=== PATIENT | male | born 1960 | race Caucasian/White ===

== ENCOUNTER 2018-01-10 09:45 | Outpatient (RCR) | payer OTHER, SELFPAY ==
--- NOTE | 2017-11-23 15:21 | PT.OIE ---
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 T[employer] Rules Primary Care Provider Specialty: Family Practice Address: [address] [place] [address], [employer] Email: Physical Therapy Initial Evaluation PT-OP-A Visit Information Start: 11/22/17 14:27 Freq: Status: Active Protocol: Document 11/22/17 14:29 EA (Rec: 11/22/17 14:31 EA [id number]) Out-Patient Physical Therapy Visit Information Visit Information Visit Type Initial Evaluation Visit Start Time 10:30 Visit Stop Time 11:45 Total Visit Minutes 35 Visit Number 1 Evaluation Information Evaluation Date 11/22/17 PT-OP-B Current Condition Start: 11/22/17 14:27 Freq: Status: Active Protocol: Document 11/22/17 14:29 EA (Rec: 11/23/17 14:30 EA [id number]) Current Condition History of Current Condition Onset Date 6-8 months ago Current Complaints Localized low back pain rated 5/10 History of Current Condition Pt reports present condition started 6-8 months ago that develops gradually with no known or recent injury; states it could be related to his fall in the horse when he was 10 year old. Patient denies any radiation of pain and pain increased mostly when leaning back sung in a sitting position and decreased upon leaning forward. Patient states that he and his loves to perform daily morning exercises that included whole body workout using BW and flexibility exercises; pt mentioned they also perform abdominal exercises that included leg up and raises. 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) Prior Functional Status Baseline Function- ADL's Independent Baseline Function- Work/School Able to seat and work more than 8 hours without back pain Current Functional Impairments (Reported) Functional Limitations- Work/School Unable to seat > 1 hour at work without leaning forward or change position Personal Factors Other Personal Factors That May Effect Other problem: chronic neck Therapy/Recovery pain PT-OP-C Subjective Start: 11/22/17 14:27 Freq: Status: Active Protocol: Document 11/22/17 14:29 EA (Rec: 11/23/17 14:30 EA [id number]) OP-PT Subjective Patient Comments Patient Comments C/o localized intermittent low back pain rated 5/10 that disappear upon leaning FWD in seating. Patient Reported Progress Same Patient Questionnaires Oswestry Low Back Index Oswestry Impairment 1 to 19% Impaired (Score 1-19) PT-OP-J Posture/Palpation/Skin Start: 11/22/17 14:27 Freq: Status: Active Protocol: Document 11/22/17 14:29 EA (Rec: 11/23/17 14:30 EA [id number]) Posture Evaluation Position Standing L-Spine Posture Increased Lordosis Pelvis Posture Anteriorly Tilted PT-OP-K Range of Motion Start: 11/22/17 14:27 Freq: Status: Active Protocol: Document 11/22/17 14:29 EA (Rec: 11/23/17 14:30 EA [id number]) Lumbar Spine Range of Motion Lumbar Spine Active Percentage Testing Position Standing Flexion 90 Extension 90 Rotation Left 90 Rotation Right 90 Lateral Flexion Left 85 Lateral Flexion Right 85 ROM Limitations Soft Tissue Tightness Pain Hip Goniometric Range of Motion Hip Measured in Degrees Right Active Hip ROM WFL Yes Left Active Hip ROM WFL Yes PT-OP-L Special Tests Start: 11/22/17 14:27 Freq: Status: Active Protocol: Document 11/22/17 14:29 EA (Rec: 11/23/17 14:30 EA [id number]) Special Tests Lumbar Spine Special Tests Stork Test Test Results negative Valsalva Maneuver Test Results negative Straight Leg Raise Test Results Negative both Comments Tight hamstring Other Special Tests Special Tests Sacral compression: Sensitive to L SI jnt Prone single Hip Ext: Sensitive to left SI jnt Zhang test: tight hip flexors PT-OP-M Strength Start: 11/22/17 14:27 Freq: Status: Active Protocol: Document 11/22/17 14:29 EA (Rec: 11/23/17 14:30 EA [id number]) Trunk Strength Trunk Manual Muscle Testing Testing Position sup/SL Flexion 4- Good- Extension 4- Good- Rotation Left 4- Good- Rotation Right 4- Good- Lateral Flexion Left 4- Good- Lateral Flexion Right 4- Good- Hip Strength Hip Manual Muscle Testing Right Flexion (L2) 5 Normal Extension (S1) 5 Normal Adduction 5 Normal External Rotation 5 Normal Internal Rotation 5 Normal Left Flexion (L2) 5 Normal Extension (S1) 5 Normal Abduction 5 Normal Adduction 5 Normal External Rotation 5 Normal Internal Rotation 5 Normal Knee Strength Knee Manual Muscle Testing Right Reason Not Measured WFL Left Reason Not Measured WFL PT-OP-Q Treatments Start: 11/22/17 14:27 Freq: Status: Active Protocol: Document 11/22/17 14:29 EA (Rec: 11/23/17 14:30 EA [id number]) Self-Care/Home Management Treatment Education Patient Education Body Mechanics Home Exercise Program Joint Protection Pain Management Posture PT-OP-T Assessment and Plan Start: 11/22/17 14:27 Freq: Status: Active Protocol: Document 11/22/17 14:29 EA (Rec: 11/23/17 14:30 EA [id number]) Physical Therapy Assessment Rehab Potential Rehabilitation Potential Good Evaluation Complexity Number of Personal Factors/Comorbidities 1-2 Number of Body Systems Impaired 1-2 Clinical Presentation at Evaluation Stable Impairments Impairments Pain Posture Strength Goals Three Impairment Subjective complaint PS of 4/ 10 Snf Goal (LTG) Patient will have pain complaint of 1 or 0/10 pain PS LTG Duration 4 wks Two Impairment Sitting tolerance of <5 min in upright or slight recline back Digital Intern Goal (LTG) Patient will exhibit >30 minutes of sitting tolerance in an upright or slight recline back. LTG Duration 4 wks One Impairment Low back Oswestry sore of 9/50 Snf Goal (LTG) Patient will have Oswestry score of 0/50 LTG Duration 4 wks Assessment Summary Assessment Pleasant 57 y/o male patient who diagnosed with low back pain. Today patient exhibits decreased seating tolerance in upright position or leaning back slightly due to increase of pain. Special test reveals left SI joint involvement with no neural affectation and LLD . Patient condition may result from recent personal core strengthening exercises due to weakness and of abdominal muscles and poor exercises technique. Due to current condition, patient limits his positional tolerance. Patient will benefit with skilled PT to improve core strength, learn proper core excercises technique and to reduce lo back pain. Physical Therapy Plan Frequency and Duration Frequency of Treatment 2x/Week Plan of Care Start Date 11/22/17 Plan of Care End Date 01/17/18 Next Visit Focus/Plan Next Note Type Treatment Note Next Visit Plan Provide HEP; Body mechanics, Reduce pain, Core strengthening, education with personal fitness exercises program.
--- NOTE | 2017-11-23 15:22 | PT.OPPOC ---
Current Diagnoses Low back pain (11/22/17) Provider Visit Care Team Role Provider Type Franki Raza PA-C Attending Provider Advanced Supervisor [employer] Primary Care Provider Specialty: Family Practice Address: [address] [place] [address], [id number] Email: Plan Of Care PT-OP-T Assessment and Plan Start: 11/22/17 14:27 Freq: Status: Active Protocol: Document 11/22/17 14:29 EA (Rec: 11/23/17 14:30 EA [id number]) Physical Therapy Assessment Rehab Potential Rehabilitation Potential Good Evaluation Complexity Number of Personal Factors/Comorbidities 1-2 Number of Body Systems Impaired 1-2 Clinical Presentation at Evaluation Stable Impairments Impairments Pain Posture Strength Goals Three Impairment Subjective complaint PS of 4/ 10 Dish Cloth Inspector Goal (LTG) Patient will have pain complaint of 1 or 0/10 pain PS LTG Duration 4 wks Two Impairment Sitting tolerance of <5 min in upright or slight recline back Dish Cloth Inspector Goal (LTG) Patient will exhibit >30 minutes of sitting tolerance in an upright or slight recline back. LTG Duration 4 wks One Impairment Low back Oswetry sore of 9/50 Dish Cloth Inspector Goal (LTG) Patient will have Oswestry score of 0/50 LTG Duration 4 wks Assessment Summary Assessment Pleasant 57 y/o male patient who diagnosed with low back pain. Today patient exhibits decreased seating tolerance in upright position or leaning back slighty due to increase of pain. Special test reveals left SI joint involvement with no neural affectation and LLD . Patient condition may result from recent personal core strengthening exercises due to weakness and of abdominal muscles and poor exercises technique. Due to current condition, patient limits his positional tolerance. Patient will benefit with skilled PT to improve core strength, learn proper core exercises technique and to reduce lo back pain. Physical Therapy Plan Frequency and Duration Frequency of Treatment 2x/Week Plan of Care Start Date 11/22/17 Plan of Care End Date 01/17/18 Next Visit Focus/Plan Next Note Type Treatment Note Next Visit Plan Provide HEP; Body mechanics, Reduce pain, Core strengthening, education with personal fitness excercises program. Plan of Care Dates Plan of Care Start Date 11/22/17 Plan of Care End Date 01/17/18 Please Sign and Return: I have reviewed this Plan of Care and certify that the skilled therapy services above are required to meet the patient?s needs. Physician Signature Date Printed Name and Credentials Clinical Instructor Signature Printed Name and Credentials
--- NOTE | 2017-11-24 10:25 | PT.OTN ---
Current Diagnoses Low back pain (11/24/17) Physical Therapy Treatment Note PT-OP-A Visit Information Start: 11/22/17 14:27 Freq: Status: Active Protocol: Document 11/24/17 09:50 EA (Rec: 11/24/17 10:22 EA [id number]) Out-Patient Physical Therapy Visit Information Visit Information Visit Type Treatment Note Visit Start Time 09:45 Visit Stop Time 10:30 Total Visit Minutes 55 Visit Number 2 Number of WEDDING PLANNER Visits 0 PT-OP-B Current Condition Start: 11/22/17 14:27 Freq: Status: Active Protocol: Document 11/22/17 14:29 EA (Rec: 11/23/17 14:30 EA [id number]) Current Condition History of Current Condition Onset Date 6-8 months ago Current Complaints Localized low back pain rated 5/10 History of Current Condition Pt reports present condition started 6-8 months ago that develops gradually with no known or recent injury; states it could be related to his fall in the horse when he was 10 year old. Patient denies any radiation of pain and pain increased mostly when leaning back sung in a sitting position and decreased upon leaning forward. Patient states that he and his loves to perform daily morning exercises that included whole body workout using BW and flexibility exercises; pt mentioned they also perform abdominal exercises that included leg up and raises. 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) Prior Functional Status Baseline Function- ADL's Independent Baseline Function- Work/School Able to seat and work more than 8 hours without back pain Current Functional Impairments (Reported) Functional Limitations- Work/School Unable to seat > 1 hour at work without leaning forward or change position Personal Factors Other Personal Factors That May Effect Other problem: chronic neck Therapy/Recovery pain PT-OP-C Subjective Start: 11/22/17 14:27 Freq: Status: Active Protocol: Document 11/24/17 10:23 EA (Rec: 11/24/17 10:25 EA [id number]) OP-PT Subjective Patient Comments Patient Comments Patient reports pain has been reduced after follwing recommended home management; states i cant believed how cold pack cand do to reduce pain. Patient Reported Progress Improving PT-OP-J Posture/Palpation/Skin Start: 11/22/17 14:27 Freq: Status: Active Protocol: Document 11/22/17 14:29 EA (Rec: 11/23/17 14:30 EA [id number]) Posture Evaluation Position Standing L-Spine Posture Increased Lordosis Pelvis Posture Anteriorly Tilted PT-OP-K Range of Motion Start: 11/22/17 14:27 Freq: Status: Active Protocol: Document 11/22/17 14:29 EA (Rec: 11/23/17 14:30 EA [id number]) Lumbar Spine Range of Motion Lumbar Spine Active Percentage Testing Position Standing Flexion 90 Extension 90 Rotation Left 90 Rotation Right 90 Lateral Flexion Left 85 Lateral Flexion Right 85 ROM Limitations Soft Tissue Tightness Pain Hip Goniometric Range of Motion Hip Measured in Degrees Right Active Hip ROM WFL Yes Left Active Hip ROM WFL Yes PT-OP-L Special Tests Start: 11/22/17 14:27 Freq: Status: Active Protocol: Document 11/22/17 14:29 EA (Rec: 11/23/17 14:30 EA [id number]) Special Tests Lumbar Spine Special Tests Stork Test Test Results negative Valsalva Maneuver Test Results negative Straight Leg Raise Test Results Negative both Comments Tight hamstring Other Special Tests Special Tests Sacral compression: Sentive to L SI jnt Prone single Hip Ext: Sensitive to left SI jnt Thamas test: tight hip flexors PT-OP-M Strength Start: 11/22/17 14:27 Freq: Status: Active Protocol: Document 11/22/17 14:29 EA (Rec: 11/23/17 14:30 EA [id number]) Trunk Strength Trunk Manual Muscle Testing Testing Position sup/SL Flexion 4- Good- Extension 4- Good- Rotation Left 4- Good- Rotation Right 4- Good- Lateral Flexion Left 4- Good- Lateral Flexion Right 4- Good- Hip Strength Hip Manual Muscle Testing Right Flexion (L2) 5 Normal Extension (S1) 5 Normal Adduction 5 Normal External Rotation 5 Normal Internal Rotation 5 Normal Left Flexion (L2) 5 Normal Extension (S1) 5 Normal Abduction 5 Normal Adduction 5 Normal External Rotation 5 Normal Internal Rotation 5 Normal Knee Strength Knee Manual Muscle Testing Right Reason Not Measured WFL Left Reason Not Measured WFL PT-OP-Q Treatments Start: 11/22/17 14:27 Freq: Status: Active Protocol: Document 11/24/17 09:50 EA (Rec: 11/24/17 10:22 EA [id number]) Cardio Equipment Recumbent Stepper (Sci-Fit) Duration (Minutes) 6 Resistance 2 Therapeutic Exercises Supine Exercises 4 Supine Exercise Name Hamstring stretch Side bilateral Reps/Minutes x 15SH x 2reps 3 Supine Exercise Name SKTC to DKTC Reps/Minutes X15 SH x 3 reps 2 Supine Exercise Name Abd bracing with alt marching Reps/Minutes x 5 reps x 3 sets 1 Supine Exercise Name Abdominal Bracing/PPT Reps/Minutes x 5 SH x 5 reps Manual Therapy Treatment Soft Tissue Mobilization 1 Body Location SI joints, upper gluteals, paralumabrs Mobilization Type Sustained Pressure Body Position Prone Comments Pillow under stomach; to stretch hip ERotators PT-OP-R Modalities Start: 11/22/17 14:27 Freq: Status: Active Protocol: Document 11/24/17 09:50 EA (Rec: 11/24/17 10:22 EA [id number]) Electric Stimulation Electric Stimulation Interferential Current (IFC) Body Location lower paralumbars, upper gluteals bilateral Contraction Type Normal Patient Position Prone Combined With Heat/Cold Cold Pack Comments pillow under stomach Hot Pack/Cold Pack Treatment Cold Pack Location Paralumbars Patient Position Prone Patient Tolerance Good PT-OP-T Assessment and Plan Start: 11/22/17 14:27 Freq: Status: Active Protocol: Document 11/24/17 09:50 EA (Rec: 11/24/17 10:22 EA [id number]) Physical Therapy Assessment Assessment Summary Assessment Tolerated treatment well. Recommended 2 HEP exercises which patient showed safe carryover Physical Therapy Plan Next Visit Focus/Plan Next Note Type Treatment Note Next Visit Plan Cont with current plan.
--- NOTE | 2017-11-29 13:07 | PT.OTN ---
Current Diagnoses Low back pain (11/29/17) Physical Therapy Treatment Note PT-OP-A Visit Information Start: 11/22/17 14:27 Freq: Status: Active Protocol: Document 11/29/17 10:04 EA (Rec: 11/29/17 10:29 EA [id number]) Out-Patient Physical Therapy Visit Information Visit Information Visit Type Treatment Note Visit Start Time 09:45 Visit Stop Time 10:30 Total Visit Minutes 55 Visit Number 2 Number of WELL SHOOTER Visits 0 PT-OP-B Current Condition Start: 11/22/17 14:27 Freq: Status: Active Protocol: Document 11/22/17 14:29 EA (Rec: 11/23/17 14:30 EA [id number]) Current Condition History of Current Condition Onset Date 6-8 months ago Current Complaints Localized low back pain rated 5/10 History of Current Condition Pt reports present condition started 6-8 months ago that develops gradually with no known or recent injury; states it could be related to his fall in the horse when he was 10 year old. Patient denies any radiation of pain and pain increased mostly when leaning back sung in a sitting position and decreased upon leaning forward. Patient states that he and his loves to perform daily morning exercises that included whole body workout using BW and flexibility exercises; pt mentioned they also perform abdominal exercises that included leg up and raises. 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) Prior Functional Status Baseline Function- ADL's Independent Baseline Function- Work/School Able to seat and work more than 8 hours without back pain Current Functional Impairments (Reported) Functional Limitations- Work/School Unable to seat > 1 hour at work without leaning forward or change position Personal Factors Other Personal Factors That May Effect Other problem: chronic neck Therapy/Recovery pain PT-OP-C Subjective Start: 11/22/17 14:27 Freq: Status: Active Protocol: Document 11/29/17 10:04 EA (Rec: 11/29/17 10:29 EA [id number]) OP-PT Subjective Patient Comments Patient Comments Pt reports is now able to sit more than 5 mins without changing position Patient Reported Progress Improving PT-OP-J Posture/Palpation/Skin Start: 11/22/17 14:27 Freq: Status: Active Protocol: Document 11/22/17 14:29 EA (Rec: 11/23/17 14:30 EA [id number]) Posture Evaluation Position Standing L-Spine Posture Increased Lordosis Pelvis Posture Anteriorly Tilted PT-OP-K Range of Motion Start: 11/22/17 14:27 Freq: Status: Active Protocol: Document 11/22/17 14:29 EA (Rec: 11/23/17 14:30 EA [id number]) Lumbar Spine Range of Motion Lumbar Spine Active Percentage Testing Position Standing Flexion 90 Extension 90 Rotation Left 90 Rotation Right 90 Lateral Flexion Left 85 Lateral Flexion Right 85 ROM Limitations Soft Tissue Tightness Pain Hip Goniometric Range of Motion Hip Measured in Degrees Right Active Hip ROM WFL Yes Left Active Hip ROM WFL Yes PT-OP-L Special Tests Start: 11/22/17 14:27 Freq: Status: Active Protocol: Document 11/22/17 14:29 EA (Rec: 11/23/17 14:30 EA [id number]) Special Tests Lumbar Spine Special Tests Stork Test Test Results negative Valsalva Maneuver Test Results negative Straight Leg Raise Test Results Negative both Comments Tight hamstring Other Special Tests Special Tests Sacral compression: Sentive to L SI jnt Prone single Hip Ext: Sensitive to left SI jnt Thamas test: tight hip flexors PT-OP-M Strength Start: 11/22/17 14:27 Freq: Status: Active Protocol: Document 11/22/17 14:29 EA (Rec: 11/23/17 14:30 EA [id number]) Trunk Strength Trunk Manual Muscle Testing Testing Position sup/SL Flexion 4- Good- Extension 4- Good- Rotation Left 4- Good- Rotation Right 4- Good- Lateral Flexion Left 4- Good- Lateral Flexion Right 4- Good- Hip Strength Hip Manual Muscle Testing Right Flexion (L2) 5 Normal Extension (S1) 5 Normal Adduction 5 Normal External Rotation 5 Normal Internal Rotation 5 Normal Left Flexion (L2) 5 Normal Extension (S1) 5 Normal Abduction 5 Normal Adduction 5 Normal External Rotation 5 Normal Internal Rotation 5 Normal Knee Strength Knee Manual Muscle Testing Right Reason Not Measured WFL Left Reason Not Measured WFL PT-OP-Q Treatments Start: 11/22/17 14:27 Freq: Status: Active Protocol: Document 11/29/17 10:04 EA (Rec: 11/29/17 10:29 EA [id number]) Cardio Equipment Recumbent Bicycle Duration (Minutes) 7 Resistance 4 Therapeutic Exercises Supine Exercises 4 Supine Exercise Name Hamstring stretch Side bilateral Reps/Minutes x 15SH x 2reps 3 Supine Exercise Name SKTC to DKTC Reps/Minutes X15 SH x 3 reps 2 Supine Exercise Name Abd bracing with alt marching Reps/Minutes x 5 reps x 3 sets 1 Supine Exercise Name Abdominal Bracing/PPT Reps/Minutes x 5 SH x 5 reps Standing Exercises 1 Standing Exercise Name Floor to waist lift: body mechanics Resistance 10-20 lbs Reps/Minutes x 10 x 2 Manual Therapy Treatment Soft Tissue Mobilization 1 Body Location SI joints, upper gluteals, paralumabrs Mobilization Type Sustained Pressure Body Position Prone Comments Pillow under stomach; to stretch hip ERotators PT-OP-R Modalities Start: 11/22/17 14:27 Freq: Status: Active Protocol: Document 11/29/17 10:04 EA (Rec: 11/29/17 10:29 EA [id number]) Hot Pack/Cold Pack Treatment Cold Pack Location [place] Patient Position Prone Patient Tolerance Good PT-OP-T Assessment and Plan Start: 11/22/17 14:27 Freq: Status: Active Protocol: Document 11/29/17 10:04 EA (Rec: 11/29/17 10:29 EA [id number]) Physical Therapy Assessment Assessment Summary Assessment Decreased symptoms during session. Patient is progressing well. Physical Therapy Plan Next Visit Focus/Plan Next Note Type Treatment Note Next Visit Plan Cont with current plan. Progress as tolerated.
--- NOTE | 2017-12-01 12:14 | PT.OTN ---
Current Diagnoses Low back pain (12/01/17) Physical Therapy Treatment Note PT-OP-A Visit Information Start: 11/22/17 14:27 Freq: Status: Active Protocol: Document 12/01/17 09:49 EA (Rec: 12/01/17 10:27 EA [id number]) Out-Patient Physical Therapy Visit Information Visit Information Visit Type Treatment Note Visit Start Time 09:45 Visit Stop Time 10:30 Total Visit Minutes 55 Visit Number 4 Number of MANAGER ADMINISTRATIVE Visits 0 PT-OP-B Current Condition Start: 11/22/17 14:27 Freq: Status: Active Protocol: Document 11/22/17 14:29 EA (Rec: 11/23/17 14:30 EA [id number]) Current Condition History of Current Condition Onset Date 6-8 months ago Current Complaints Localized low back pain rated 5/10 History of Current Condition Pt reports present condition started 6-8 months ago that develops gradually with no known or recent injury; states it could be related to his fall in the horse when he was 10 year old. Patient denies any radiation of pain and pain increased mostly when leaning back sung in a sitting position and decreased upon leaning forward. Patient states that he and his loves to perform daily morning exercises that included whole body workout using BW and flexibility exercises; pt mentioned they also perform abdominal exercises that included leg up and raises. 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) Prior Functional Status Baseline Function- ADL's Independent Baseline Function- Work/School Able to seat and work more than 8 hours without back pain Current Functional Impairments (Reported) Functional Limitations- Work/School Unable to seat > 1 hour at work without leaning forward or change position Personal Factors Other Personal Factors That May Effect Other problem: chronic neck Therapy/Recovery pain PT-OP-C Subjective Start: 11/22/17 14:27 Freq: Status: Active Protocol: Document 12/01/17 09:49 EA (Rec: 12/01/17 10:27 EA [id number]) OP-PT Subjective Patient Comments Patient Comments Pt reports low back is getting better but he still feel increase in symptoms after few minute in sitting position. Patient Reported Progress Improving PT-OP-J Posture/Palpation/Skin Start: 11/22/17 14:27 Freq: Status: Active Protocol: Document 11/22/17 14:29 EA (Rec: 11/23/17 14:30 EA [id number]) Posture Evaluation Position Standing L-Spine Posture Increased Lordosis Pelvis Posture Anteriorly Tilted PT-OP-K Range of Motion Start: 11/22/17 14:27 Freq: Status: Active Protocol: Document 11/22/17 14:29 EA (Rec: 11/23/17 14:30 EA [id number]) Lumbar Spine Range of Motion Lumbar Spine Active Percentage Testing Position Standing Flexion 90 Extension 90 Rotation Left 90 Rotation Right 90 Lateral Flexion Left 85 Lateral Flexion Right 85 ROM Limitations Soft Tissue Tightness Pain Hip Goniometric Range of Motion Hip Measured in Degrees Right Active Hip ROM WFL Yes Left Active Hip ROM WFL Yes PT-OP-L Special Tests Start: 11/22/17 14:27 Freq: Status: Active Protocol: Document 11/22/17 14:29 EA (Rec: 11/23/17 14:30 EA [id number]) Special Tests Lumbar Spine Special Tests Stork Test Test Results negative Valsalva Maneuver Test Results negative Straight Leg Raise Test Results Negative both Comments Tight hamstring Other Special Tests Special Tests Sacral compression: Sentive to L SI jnt Prone single Hip Ext: Sensitive to left SI jnt Thamas test: tight hip flexors PT-OP-M Strength Start: 11/22/17 14:27 Freq: Status: Active Protocol: Document 11/22/17 14:29 EA (Rec: 11/23/17 14:30 EA [id number]) Trunk Strength Trunk Manual Muscle Testing Testing Position sup/SL Flexion 4- Good- Extension 4- Good- Rotation Left 4- Good- Rotation Right 4- Good- Lateral Flexion Left 4- Good- Lateral Flexion Right 4- Good- Hip Strength Hip Manual Muscle Testing Right Flexion (L2) 5 Normal Extension (S1) 5 Normal Adduction 5 Normal External Rotation 5 Normal Internal Rotation 5 Normal Left Flexion (L2) 5 Normal Extension (S1) 5 Normal Abduction 5 Normal Adduction 5 Normal External Rotation 5 Normal Internal Rotation 5 Normal Knee Strength Knee Manual Muscle Testing Right Reason Not Measured WFL Left Reason Not Measured WFL PT-OP-Q Treatments Start: 11/22/17 14:27 Freq: Status: Active Protocol: Document 12/01/17 09:49 EA (Rec: 12/01/17 10:27 EA [id number]) Cardio Equipment Elliptical Duration (Minutes) 5 Resistance 1 Other with TA's isometric contx Therapeutic Exercises Supine Exercises 4 Supine Exercise Name Hamstring stretch Side bilateral Reps/Minutes x 15SH x 2reps 3 Supine Exercise Name SKTC to DKTC Reps/Minutes X15 SH x 3 reps 2 Supine Exercise Name Abd bracing with alt marching Reps/Minutes x 5 reps x 3 sets 1 Supine Exercise Name Abdominal Bracing/PPT Reps/Minutes x 5 SH x 5 reps Standing Exercises 2 Standing Exercise Name wall squats with PPT Reps/Minutes x5SH x 10reps 1 Standing Exercise Name Floor to waist lift: body mechanics Resistance 20-30 lbs Reps/Minutes x 10 x 2 Manual Therapy Treatment Soft Tissue Mobilization 1 Body Location SI joints, upper gluteals, paralumabrs Mobilization Type Sustained Pressure Body Position Prone Comments Pillow under stomach; to stretch hip ERotators PT-OP-R Modalities Start: 11/22/17 14:27 Freq: Status: Active Protocol: Document 12/01/17 10:28 EA (Rec: 12/01/17 10:28 EA [id number]) Electric Stimulation Electric Stimulation Interferential Current (IFC) Body Location lower paralumbars, upper gluteals bilateral Contraction Type Normal Patient Position Prone Combined With Heat/Cold Cold Pack Comments pillow under stomach PT-OP-T Assessment and Plan Start: 11/22/17 14:27 Freq: Status: Active Protocol: Document 12/01/17 09:49 EA (Rec: 12/01/17 10:27 EA [id number]) Physical Therapy Assessment Assessment Summary Assessment No increased in symptoms during exercises. Patient understands the HEP to perform . Patient is progressing well. Physical Therapy Plan Next Visit Focus/Plan Next Visit Plan Cont with current plan.
--- NOTE | 2017-12-06 14:25 | PT.OTN ---
Current Diagnoses Low back pain (12/06/17) Physical Therapy Treatment Note PT-OP-A Visit Information Start: 11/22/17 14:27 Freq: Status: Active Protocol: Document 12/06/17 09:53 EA (Rec: 12/06/17 10:28 EA [id number]) Out-Patient Physical Therapy Visit Information Visit Information Visit Type Treatment Note Visit Start Time 09:45 Visit Stop Time 10:30 Total Visit Minutes 55 Visit Number 5 Number of TIRE RECAPPER Visits 0 PT-OP-B Current Condition Start: 11/22/17 14:27 Freq: Status: Active Protocol: Document 11/22/17 14:29 EA (Rec: 11/23/17 14:30 EA [id number]) Current Condition History of Current Condition Onset Date 6-8 months ago Current Complaints Localized low back pain rated 5/10 History of Current Condition Pt reports present condition started 6-8 months ago that develops gradually with no known or recent injury; states it could be related to his fall in the horse when he was 10 year old. Patient denies any radiation of pain and pain increased mostly when leaning back sung in a sitting position and decreased upon leaning forward. Patient states that he and his loves to perform daily morning exercises that included whole body workout using BW and flexibility exercises; pt mentioned they also perform abdominal exercises that included leg up and raises. 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) Prior Functional Status Baseline Function- ADL's Independent Baseline Function- Work/School Able to seat and work more than 8 hours without back pain Current Functional Impairments (Reported) Functional Limitations- Work/School Unable to seat > 1 hour at work without leaning forward or change position Personal Factors Other Personal Factors That May Effect Other problem: chronic neck Therapy/Recovery pain PT-OP-C Subjective Start: 11/22/17 14:27 Freq: Status: Active Protocol: Document 12/06/17 09:53 EA (Rec: 12/06/17 10:28 EA [id number]) OP-PT Subjective Patient Comments Patient Comments Pt reports works disrupts pain ; states much feeling better right after PT session. Patient Reported Progress Improving PT-OP-J Posture/Palpation/Skin Start: 11/22/17 14:27 Freq: Status: Active Protocol: Document 11/22/17 14:29 EA (Rec: 11/23/17 14:30 EA [id number]) Posture Evaluation Position Standing L-Spine Posture Increased Lordosis Pelvis Posture Anteriorly Tilted PT-OP-K Range of Motion Start: 11/22/17 14:27 Freq: Status: Active Protocol: Document 11/22/17 14:29 EA (Rec: 11/23/17 14:30 EA [id number]) Lumbar Spine Range of Motion Lumbar Spine Active Percentage Testing Position Standing Flexion 90 Extension 90 Rotation Left 90 Rotation Right 90 Lateral Flexion Left 85 Lateral Flexion Right 85 ROM Limitations Soft Tissue Tightness Pain Hip Goniometric Range of Motion Hip Measured in Degrees Right Active Hip ROM WFL Yes Left Active Hip ROM WFL Yes PT-OP-L Special Tests Start: 11/22/17 14:27 Freq: Status: Active Protocol: Document 11/22/17 14:29 EA (Rec: 11/23/17 14:30 EA [id number]) Special Tests Lumbar Spine Special Tests Stork Test Test Results negative Valsalva Maneuver Test Results negative Straight Leg Raise Test Results Negative both Comments Tight hamstring Other Special Tests Special Tests Sacral compression: Sentive to L SI jnt Prone single Hip Ext: Sensitive to left SI jnt Thamas test: tight hip flexors PT-OP-M Strength Start: 11/22/17 14:27 Freq: Status: Active Protocol: Document 11/22/17 14:29 EA (Rec: 11/23/17 14:30 EA [id number]) Trunk Strength Trunk Manual Muscle Testing Testing Position sup/SL Flexion 4- Good- Extension 4- Good- Rotation Left 4- Good- Rotation Right 4- Good- Lateral Flexion Left 4- Good- Lateral Flexion Right 4- Good- Hip Strength Hip Manual Muscle Testing Right Flexion (L2) 5 Normal Extension (S1) 5 Normal Adduction 5 Normal External Rotation 5 Normal Internal Rotation 5 Normal Left Flexion (L2) 5 Normal Extension (S1) 5 Normal Abduction 5 Normal Adduction 5 Normal External Rotation 5 Normal Internal Rotation 5 Normal Knee Strength Knee Manual Muscle Testing Right Reason Not Measured WFL Left Reason Not Measured WFL PT-OP-Q Treatments Start: 11/22/17 14:27 Freq: Status: Active Protocol: Document 12/06/17 09:53 EA (Rec: 12/06/17 10:28 EA [id number]) Cardio Equipment Recumbent Bicycle Duration (Minutes) 7 Resistance 4 Other no increased of back pain Therapeutic Exercises Supine Exercises 4 Supine Exercise Name Hamstring stretch Side bilateral Reps/Minutes x 15SH x 2reps 3 Supine Exercise Name SKTC to DKTC Reps/Minutes X15 SH x 3 reps 2 Supine Exercise Name Abd bracing with alt marching Reps/Minutes x 5 reps x 3 sets Comments long lever with marching 1 Supine Exercise Name Abdominal Bracing/PPT Reps/Minutes x 5 SH x 5 reps Prone Exercises 1 Prone Exercise Name LE hip extnsion single to double Equipment Used prone on table Reps/Minutes x 10-12 reps x 2 Sidelying Exercises 1 Sidelying Exercise Name clamshell Side bilateral Resistance Lv 1 Reps/Minutes x 15 reps Standing Exercises 2 Standing Exercise Name wall squats with PPT Reps/Minutes x5SH x 10reps Manual Therapy Treatment Soft Tissue Mobilization 1 Body Location SI joints, upper gluteals, paralumabrs Mobilization Type Sustained Pressure Body Position Prone Comments Pillow under stomach; to stretch hip ERotators PT-OP-R Modalities Start: 11/22/17 14:27 Freq: Status: Active Protocol: Document 12/06/17 09:53 EA (Rec: 12/06/17 10:28 EA [id number]) Electric Stimulation Electric Stimulation Interferential Current (IFC) Body Location lower paralumbars, upper gluteals bilateral Contraction Type Normal Patient Position Prone Combined With Heat/Cold Cold Pack Comments pillow under stomach PT-OP-T Assessment and Plan Start: 11/22/17 14:27 Freq: Status: Active Protocol: Document 12/06/17 09:53 EA (Rec: 12/06/17 10:28 EA [id number]) Physical Therapy Assessment Assessment Summary Assessment Tolerated treatment with no increased in symptoms during exercises; patient is progressing well. Physical Therapy Plan Next Visit Focus/Plan Next Visit Plan Advance as tolerated.
--- NOTE | 2017-12-08 11:13 | PT.OTN ---
Current Diagnoses Low back pain (12/08/17) Physical Therapy Treatment Note PT-OP-A Visit Information Start: 11/22/17 14:27 Freq: Status: Active Protocol: Document 12/08/17 09:44 EA (Rec: 12/08/17 10:28 EA [id number]) Out-Patient Physical Therapy Visit Information Visit Information Visit Type Treatment Note Visit Start Time 09:45 Visit Stop Time 10:30 Total Visit Minutes 55 Visit Number 6 Number of WARPING MACHINE OPERATOR Visits 0 PT-OP-B Current Condition Start: 11/22/17 14:27 Freq: Status: Active Protocol: Document 11/22/17 14:29 EA (Rec: 11/23/17 14:30 EA [id number]) Current Condition History of Current Condition Onset Date 6-8 months ago Current Complaints Localized low back pain rated 5/10 History of Current Condition Pt reports present condition started 6-8 months ago that develops gradually with no known or recent injury; states it could be related to his fall in the horse when he was 10 year old. Patient denies any radiation of pain and pain increased mostly when leaning back snug in a sitting position and decreased upon leaning forward. Patient states that he and his loves to perform daily morning exercises that included whole body workout using BW and flexibility exercises; pt mentioned they also perform abdominal exercises that included leg up and raises. 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) Prior Functional Status Baseline Function- ADL's Independent Baseline Function- Work/School Able to seat and work more than 8 hours without back pain Current Functional Impairments (Reported) Functional Limitations- Work/School Unable to seat > 1 hour at work without leaning forward or change position Personal Factors Other Personal Factors That May Effect Other problem: chronic neck Therapy/Recovery pain PT-OP-C Subjective Start: 11/22/17 14:27 Freq: Status: Active Protocol: Document 12/08/17 10:30 EA (Rec: 12/08/17 10:31 EA [id number]) OP-PT Subjective Patient Comments Patient Comments 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 Patient Reported Progress Improving PT-OP-J Posture/Palpation/Skin Start: 11/22/17 14:27 Freq: Status: Active Protocol: Document 11/22/17 14:29 EA (Rec: 11/23/17 14:30 EA [id number]) Posture Evaluation Position Standing L-Spine Posture Increased Lordosis Pelvis Posture Anteriorly Tilted PT-OP-K Range of Motion Start: 11/22/17 14:27 Freq: Status: Active Protocol: Document 11/22/17 14:29 EA (Rec: 11/23/17 14:30 EA [id number]) Lumbar Spine Range of Motion Lumbar Spine Active Percentage Testing Position Standing Flexion 90 Extension 90 Rotation Left 90 Rotation Right 90 Lateral Flexion Left 85 Lateral Flexion Right 85 ROM Limitations Soft Tissue Tightness Pain Hip Goniometric Range of Motion Hip Measured in Degrees Right Active Hip ROM WFL Yes Left Active Hip ROM WFL Yes PT-OP-L Special Tests Start: 11/22/17 14:27 Freq: Status: Active Protocol: Document 11/22/17 14:29 EA (Rec: 11/23/17 14:30 EA [id number]) Special Tests Lumbar Spine Special Tests Stork Test Test Results negative Valsalva Maneuver Test Results negative Straight Leg Raise Test Results Negative both Comments Tight hamstring Other Special Tests Special Tests Sacral compression: Sentive to L SI jnt Prone single Hip Ext: Sensitive to left SI jnt Thamas test: tight hip flexors PT-OP-M Strength Start: 11/22/17 14:27 Freq: Status: Active Protocol: Document 11/22/17 14:29 EA (Rec: 11/23/17 14:30 EA [id number]) Trunk Strength Trunk Manual Muscle Testing Testing Position sup/SL Flexion 4- Good- Extension 4- Good- Rotation Left 4- Good- Rotation Right 4- Good- Lateral Flexion Left 4- Good- Lateral Flexion Right 4- Good- Hip Strength Hip Manual Muscle Testing Right Flexion (L2) 5 Normal Extension (S1) 5 Normal Adduction 5 Normal External Rotation 5 Normal Internal Rotation 5 Normal Left Flexion (L2) 5 Normal Extension (S1) 5 Normal Abduction 5 Normal Adduction 5 Normal External Rotation 5 Normal Internal Rotation 5 Normal Knee Strength Knee Manual Muscle Testing Right Reason Not Measured WFL Left Reason Not Measured WFL PT-OP-Q Treatments Start: 11/22/17 14:27 Freq: Status: Active Protocol: Document 12/08/17 09:44 EA (Rec: 12/08/17 10:28 EA [id number]) Cardio Equipment Recumbent Bicycle Duration (Minutes) 7 Resistance 4 Other no increased of back pain Therapeutic Exercises Supine Exercises 3 Supine Exercise Name SKTC to DKTC Reps/Minutes X15 SH x 3 reps Prone Exercises 2 Prone Exercise Name Plank- mountain climber Reps/Minutes x20 reps x 2 1 Prone Exercise Name LE hip extnsion single to double Equipment Used prone on table Reps/Minutes x 10-12 reps x 2 Standing Exercises 3 Standing Exercise Name Cable sit to stand row Side right Reps/Minutes x 15 reps 2 sets 2 Standing Exercise Name wall squats with PPT Reps/Minutes x5SH x 10reps 1 Standing Exercise Name Floor to waist lift: body mechanics Resistance 20-30 lbs Reps/Minutes x 10 x 2 Manual Therapy Treatment Soft Tissue Mobilization 1 Body Location SI joints, upper gluteals, paralumabrs Mobilization Type Sustained Pressure Body Position Prone Comments Pillow under stomach; to stretch hip ERotators PT-OP-R Modalities Start: 11/22/17 14:27 Freq: Status: Active Protocol: Document 12/08/17 09:44 EA (Rec: 12/08/17 10:28 EA [id number]) Electric Stimulation Electric Stimulation Interferential Current (IFC) Body Location lower paralumbars, upper gluteals bilateral Contraction Type Normal Patient Position Prone Combined With Heat/Cold Cold Pack Comments pillow under stomach Hot Pack/Cold Pack Treatment Cold Pack Location Paralumbars Patient Position Prone Patient Tolerance Good PT-OP-T Assessment and Plan Start: 11/22/17 14:27 Freq: Status: Active Protocol: Document 12/08/17 09:44 EA (Rec: 12/08/17 10:28 EA [id number]) Physical Therapy Assessment Assessment Summary Assessment requires cues during standing core exercises. Patient is progressing now to standing functional exercises. Physical Therapy Plan Next Visit Focus/Plan Next Note Type Treatment Note Next Visit Plan Cont with current plan.
--- NOTE | 2017-12-13 13:20 | PT.OTN ---
Current Diagnoses Low back pain (12/13/17) Physical Therapy Treatment Note PT-OP-A Visit Information Start: 11/22/17 14:27 Freq: Status: Active Protocol: Document 12/13/17 09:54 EA (Rec: 12/13/17 10:35 EA [id number]) Out-Patient Physical Therapy Visit Information Visit Information Visit Type Treatment Note Visit Start Time 09:45 Visit Stop Time 10:30 Total Visit Minutes 55 Visit Number 7 Number of CHARGE MASTER COORDINATOR Visits 0 PT-OP-B Current Condition Start: 11/22/17 14:27 Freq: Status: Active Protocol: Document 11/22/17 14:29 EA (Rec: 11/23/17 14:30 EA [id number]) Current Condition History of Current Condition Onset Date 6-8 months ago Current Complaints Localized low back pain rated 5/10 History of Current Condition Pt reports present condition started 6-8 months ago that develops gradually with no known or recent injury; states it could be related to his fall in the horse when he was 10 year old. Patient denies any radiation of pain and pain increased mostly when leaning back sung in a sitting position and decreased upon leaning forward. Patient states that he and his loves to perform daily morning exercises that included whole body workout using BW and flexibility exercises; pt mentioned they also perform abdominal exercises that included leg up and raises. 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) Prior Functional Status Baseline Function- ADL's Independent Baseline Function- Work/School Able to seat and work more than 8 hours without back pain Current Functional Impairments (Reported) Functional Limitations- Work/School Unable to seat > 1 hour at work without leaning forward or change position Personal Factors Other Personal Factors That May Effect Other problem: chronic neck Therapy/Recovery pain PT-OP-C Subjective Start: 11/22/17 14:27 Freq: Status: Active Protocol: Document 12/08/17 10:30 EA (Rec: 12/08/17 10:31 EA [id number]) OP-PT Subjective Patient Comments Patient Comments 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 Patient Reported Progress Improving PT-OP-J Posture/Palpation/Skin Start: 11/22/17 14:27 Freq: Status: Active Protocol: Document 11/22/17 14:29 EA (Rec: 11/23/17 14:30 EA [id number]) Posture Evaluation Position Standing L-Spine Posture Increased Lordosis Pelvis Posture Anteriorly Tilted PT-OP-K Range of Motion Start: 11/22/17 14:27 Freq: Status: Active Protocol: Document 11/22/17 14:29 EA (Rec: 11/23/17 14:30 EA [id number]) Lumbar Spine Range of Motion Lumbar Spine Active Percentage Testing Position Standing Flexion 90 Extension 90 Rotation Left 90 Rotation Right 90 Lateral Flexion Left 85 Lateral Flexion Right 85 ROM Limitations Soft Tissue Tightness Pain Hip Goniometric Range of Motion Hip Measured in Degrees Right Active Hip ROM WFL Yes Left Active Hip ROM WFL Yes PT-OP-L Special Tests Start: 11/22/17 14:27 Freq: Status: Active Protocol: Document 11/22/17 14:29 EA (Rec: 11/23/17 14:30 EA [id number]) Special Tests Lumbar Spine Special Tests Stork Test Test Results negative Valsalva Maneuver Test Results negative Straight Leg Raise Test Results Negative both Comments Tight hamstring Other Special Tests Special Tests Sacral compression: Sentive to L SI jnt Prone single Hip Ext: Sensitive to left SI jnt Thamas test: tight hip flexors PT-OP-M Strength Start: 11/22/17 14:27 Freq: Status: Active Protocol: Document 11/22/17 14:29 EA (Rec: 11/23/17 14:30 EA [id number]) Trunk Strength Trunk Manual Muscle Testing Testing Position sup/SL Flexion 4- Good- Extension 4- Good- Rotation Left 4- Good- Rotation Right 4- Good- Lateral Flexion Left 4- Good- Lateral Flexion Right 4- Good- Hip Strength Hip Manual Muscle Testing Right Flexion (L2) 5 Normal Extension (S1) 5 Normal Adduction 5 Normal External Rotation 5 Normal Internal Rotation 5 Normal Left Flexion (L2) 5 Normal Extension (S1) 5 Normal Abduction 5 Normal Adduction 5 Normal External Rotation 5 Normal Internal Rotation 5 Normal Knee Strength Knee Manual Muscle Testing Right Reason Not Measured WFL Left Reason Not Measured WFL PT-OP-Q Treatments Start: 11/22/17 14:27 Freq: Status: Active Protocol: Document 12/13/17 09:54 EA (Rec: 12/13/17 10:35 EA [id number]) Cardio Equipment Elliptical Duration (Minutes) 5 Resistance 1 Other with TA's isometric contx Therapeutic Exercises Supine Exercises 4 Supine Exercise Name Hamstring stretch Side bilateral Reps/Minutes x 15SH x 2reps 3 Supine Exercise Name SKTC to DKTC Reps/Minutes X15 SH x 3 reps 2 Supine Exercise Name Abd bracing with alt marching Reps/Minutes x 5 reps x 3 sets Comments long lever with marching 1 Supine Exercise Name Abdominal Bracing/PPT Reps/Minutes x 5 SH x 5 reps Therapeutic Activity Therapeutic Activity 1 Name Floor to waist lift Reps/Minutes x 5 Comments 4' thick 50 lbs lift : full squat lift and lunge squat Manual Therapy Treatment Soft Tissue Mobilization 1 Body Location SI joints, upper gluteals, paralumabrs Mobilization Type Sustained Pressure Body Position Prone Comments Pillow under stomach; to stretch hip ERotators PT-OP-R Modalities Start: 11/22/17 14:27 Freq: Status: Active Protocol: Document 12/13/17 09:54 EA (Rec: 12/13/17 10:35 EA [id number]) Electric Stimulation Electric Stimulation Interferential Current (IFC) Body Location lower paralumbars, upper gluteals bilateral Contraction Type Normal Patient Position Prone Combined With Heat/Cold Cold Pack Comments pillow under stomach Hot Pack/Cold Pack Treatment Cold Pack Location Paralumbars Patient Position Prone Patient Tolerance Good PT-OP-T Assessment and Plan Start: 11/22/17 14:27 Freq: Status: Active Protocol: Document 12/13/17 09:54 EA (Rec: 12/13/17 10:35 EA [id number]) Physical Therapy Assessment Assessment Summary Assessment Pt performed activity exercises with good form and execution; patient understands other ergonomic lifting and have choices to perform activity home safe,. patient is progressing well. Physical Therapy Plan Discharge Physical Therapy Discharge Comments Cont with current program: advance as tolerated.
--- NOTE | 2017-12-15 12:03 | PT.OTN ---
Current Diagnoses Low back pain (12/15/17) Physical Therapy Treatment Note PT-OP-A Visit Information Start: 11/22/17 14:27 Freq: Status: Active Protocol: Document 12/15/17 09:50 EA (Rec: 12/15/17 10:30 EA [id number]) Out-Patient Physical Therapy Visit Information Visit Information Visit Type Treatment Note Visit Start Time 09:45 Visit Stop Time 10:30 Total Visit Minutes 55 Visit Number 8 Number of STUDIO CONTROL OPERATOR Visits 0 PT-OP-B Current Condition Start: 11/22/17 14:27 Freq: Status: Active Protocol: Document 11/22/17 14:29 EA (Rec: 11/23/17 14:30 EA [id number]) Current Condition History of Current Condition Onset Date 6-8 months ago Current Complaints Localized low back pain rated 5/10 History of Current Condition Pt reports present condition started 6-8 months ago that develops gradually with no known or recent injury; states it could be related to his fall in the horse when he was 10 year old. Patient denies any radiation of pain and pain increased mostly when leaning back sung in a sitting position and decreased upon leaning forward. Patient states that he and his loves to perform daily morning exercises that included whole body workout using BW and flexibility exercises; pt mentioned they also perform abdominal exercises that included leg up and raises. 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) Prior Functional Status Baseline Function- ADL's Independent Baseline Function- Work/School Able to seat and work more than 8 hours without back pain Current Functional Impairments (Reported) Functional Limitations- Work/School Unable to seat > 1 hour at work without leaning forward or change position Personal Factors Other Personal Factors That May Effect Other problem: chronic neck Therapy/Recovery pain PT-OP-C Subjective Start: 11/22/17 14:27 Freq: Status: Active Protocol: Document 12/15/17 09:50 EA (Rec: 12/15/17 10:30 EA [id number]) OP-PT Subjective Patient Comments Patient Comments Pt reports able to perform lifting and moving 50lbs tiles and back is doing well. Pt reports overall he is improving well. Patient Reported Progress Improving PT-OP-J Posture/Palpation/Skin Start: 11/22/17 14:27 Freq: Status: Active Protocol: Document 11/22/17 14:29 EA (Rec: 11/23/17 14:30 EA [id number]) Posture Evaluation Position Standing L-Spine Posture Increased Lordosis Pelvis Posture Anteriorly Tilted PT-OP-K Range of Motion Start: 11/22/17 14:27 Freq: Status: Active Protocol: Document 11/22/17 14:29 EA (Rec: 11/23/17 14:30 EA [id number]) Lumbar Spine Range of Motion Lumbar Spine Active Percentage Testing Position Standing Flexion 90 Extension 90 Rotation Left 90 Rotation Right 90 Lateral Flexion Left 85 Lateral Flexion Right 85 ROM Limitations Soft Tissue Tightness Pain Hip Goniometric Range of Motion Hip Measured in Degrees Right Active Hip ROM WFL Yes Left Active Hip ROM WFL Yes PT-OP-L Special Tests Start: 11/22/17 14:27 Freq: Status: Active Protocol: Document 11/22/17 14:29 EA (Rec: 11/23/17 14:30 EA [id number]) Special Tests Lumbar Spine Special Tests Stork Test Test Results negative Valsalva Maneuver Test Results negative Straight Leg Raise Test Results Negative both Comments Tight hamstring Other Special Tests Special Tests Sacral compression: Sentive to L SI jnt Prone single Hip Ext: Sensitive to left SI jnt Thamas test: tight hip flexors PT-OP-M Strength Start: 11/22/17 14:27 Freq: Status: Active Protocol: Document 11/22/17 14:29 EA (Rec: 11/23/17 14:30 EA [id number]) Trunk Strength Trunk Manual Muscle Testing Testing Position sup/SL Flexion 4- Good- Extension 4- Good- Rotation Left 4- Good- Rotation Right 4- Good- Lateral Flexion Left 4- Good- Lateral Flexion Right 4- Good- Hip Strength Hip Manual Muscle Testing Right Flexion (L2) 5 Normal Extension (S1) 5 Normal Adduction 5 Normal External Rotation 5 Normal Internal Rotation 5 Normal Left Flexion (L2) 5 Normal Extension (S1) 5 Normal Abduction 5 Normal Adduction 5 Normal External Rotation 5 Normal Internal Rotation 5 Normal Knee Strength Knee Manual Muscle Testing Right Reason Not Measured WFL Left Reason Not Measured WFL PT-OP-Q Treatments Start: 11/22/17 14:27 Freq: Status: Active Protocol: Document 12/15/17 09:50 EA (Rec: 12/15/17 10:30 EA [id number]) Cardio Equipment Elliptical Duration (Minutes) 5 Resistance 1 Other with TA's isometric contx Therapeutic Exercises Supine Exercises 4 Supine Exercise Name Hamstring stretch Side bilateral Reps/Minutes x 15SH x 2reps 3 Supine Exercise Name SKTC to DKTC Reps/Minutes X15 SH x 3 reps 2 Supine Exercise Name Abd bracing with alt marching Reps/Minutes x 5 reps x 3 sets Comments long lever with marching Prone Exercises 1 Prone Exercise Name LE hip extnsion/ moutain climber Equipment Used bench Reps/Minutes x 10-12 reps x 2 Comments inclined plank Standing Exercises 3 Standing Exercise Name Cable sit to stand row Side right Reps/Minutes x 15 reps 2 sets 2 Standing Exercise Name wall squats with PPT Reps/Minutes x5SH x 10reps Manual Therapy Treatment Soft Tissue Mobilization 1 Body Location SI joints, upper gluteals, paralumabrs Mobilization Type Sustained Pressure Body Position Prone Comments Pillow under stomach; to stretch hip ERotators PT-OP-R Modalities Start: 11/22/17 14:27 Freq: Status: Active Protocol: Document 12/15/17 10:30 EA (Rec: 12/15/17 10:31 EA [id number]) Electric Stimulation Electric Stimulation Interferential Current (IFC) Body Location lower paralumbars, upper gluteals bilateral Contraction Type Normal Patient Position Prone Combined With Heat/Cold Cold Pack Comments pillow under stomach Hot Pack/Cold Pack Treatment Cold Pack Location Paralumbars Patient Position Prone Patient Tolerance Good PT-OP-T Assessment and Plan Start: 11/22/17 14:27 Freq: Status: Active Protocol: Document 12/15/17 09:50 EA (Rec: 12/15/17 10:30 EA [id number]) Physical Therapy Assessment Assessment Summary Assessment Patient performed advance thera exercises today without discomfort. Patient is progressing well. Physical Therapy Plan Next Visit Focus/Plan Next Note Type Treatment Note Next Visit Plan Advance as tolerated
--- NOTE | 2017-12-20 13:14 | PT.OTN ---
Current Diagnoses Low back pain (12/20/17) Physical Therapy Treatment Note PT-OP-A Visit Information Start: 11/22/17 14:27 Freq: Status: Active Protocol: Document 12/20/17 09:50 EA (Rec: 12/20/17 10:30 EA [id number]) Out-Patient Physical Therapy Visit Information Visit Information Visit Type Treatment Note Visit Start Time 09:45 Visit Stop Time 10:30 Total Visit Minutes 55 Visit Number 9 Number of WOOD GRINDER Visits 0 PT-OP-B Current Condition Start: 11/22/17 14:27 Freq: Status: Active Protocol: Document 11/22/17 14:29 EA (Rec: 11/23/17 14:30 EA [id number]) Current Condition History of Current Condition Onset Date 6-8 months ago Current Complaints Localized low back pain rated 5/10 History of Current Condition Pt reports present condition started 6-8 months ago that develops gradually with no known or recent injury; states it could be related to his fall in the horse when he was 10 year old. Patient denies any radiation of pain and pain increased mostly when leaning back sung in a sitting position and decreased upon leaning forward. Patient states that he and his loves to perform daily morning exercises that included whole body workout using BW and flexibility exercises; pt mentioned they also perform abdominal exercises that included leg up and raises. 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) Prior Functional Status Baseline Function- ADL's Independent Baseline Function- Work/School Able to seat and work more than 8 hours without back pain Current Functional Impairments (Reported) Functional Limitations- Work/School Unable to seat > 1 hour at work without leaning forward or change position Personal Factors Other Personal Factors That May Effect Other problem: chronic neck Therapy/Recovery pain PT-OP-C Subjective Start: 11/22/17 14:27 Freq: Status: Active Protocol: Document 12/20/17 09:50 EA (Rec: 12/20/17 10:30 EA [id number]) OP-PT Subjective Patient Comments Patient Comments Pt reports lower back is getting better; states he has been doing HEP. PT-OP-J Posture/Palpation/Skin Start: 11/22/17 14:27 Freq: Status: Active Protocol: Document 11/22/17 14:29 EA (Rec: 11/23/17 14:30 EA [id number]) Posture Evaluation Position Standing L-Spine Posture Increased Lordosis Pelvis Posture Anteriorly Tilted PT-OP-K Range of Motion Start: 11/22/17 14:27 Freq: Status: Active Protocol: Document 11/22/17 14:29 EA (Rec: 11/23/17 14:30 EA [id number]) Lumbar Spine Range of Motion Lumbar Spine Active Percentage Testing Position Standing Flexion 90 Extension 90 Rotation Left 90 Rotation Right 90 Lateral Flexion Left 85 Lateral Flexion Right 85 ROM Limitations Soft Tissue Tightness Pain Hip Goniometric Range of Motion Hip Measured in Degrees Right Active Hip ROM WFL Yes Left Active Hip ROM WFL Yes PT-OP-L Special Tests Start: 11/22/17 14:27 Freq: Status: Active Protocol: Document 11/22/17 14:29 EA (Rec: 11/23/17 14:30 EA [id number]) Special Tests Lumbar Spine Special Tests Stork Test Test Results negative Valsalva Maneuver Test Results negative Straight Leg Raise Test Results Negative both Comments Tight hamstring Other Special Tests Special Tests Sacral compression: Sentive to L SI jnt Prone single Hip Ext: Sensitive to left SI jnt Thamas test: tight hip flexors PT-OP-M Strength Start: 11/22/17 14:27 Freq: Status: Active Protocol: Document 11/22/17 14:29 EA (Rec: 11/23/17 14:30 EA [id number]) Trunk Strength Trunk Manual Muscle Testing Testing Position sup/SL Flexion 4- Good- Extension 4- Good- Rotation Left 4- Good- Rotation Right 4- Good- Lateral Flexion Left 4- Good- Lateral Flexion Right 4- Good- Hip Strength Hip Manual Muscle Testing Right Flexion (L2) 5 Normal Extension (S1) 5 Normal Adduction 5 Normal External Rotation 5 Normal Internal Rotation 5 Normal Left Flexion (L2) 5 Normal Extension (S1) 5 Normal Abduction 5 Normal Adduction 5 Normal External Rotation 5 Normal Internal Rotation 5 Normal Knee Strength Knee Manual Muscle Testing Right Reason Not Measured WFL Left Reason Not Measured WFL PT-OP-Q Treatments Start: 11/22/17 14:27 Freq: Status: Active Protocol: Document 12/20/17 09:50 EA (Rec: 12/20/17 10:30 EA [id number]) Cardio Equipment Elliptical Duration (Minutes) 5 Resistance 4 Other with TA's isometric contx Therapeutic Exercises Supine Exercises 4 Supine Exercise Name Hamstring stretch Side bilateral Reps/Minutes x 15SH x 2reps 3 Supine Exercise Name SKTC to DKTC Reps/Minutes X15 SH x 3 reps 2 Supine Exercise Name Abd bracing with alt marching Reps/Minutes x 5 reps x 3 sets Comments long lever with marching Prone Exercises 1 Prone Exercise Name LE hip extnsion/ moutain climber Equipment Used bench Reps/Minutes x 10-12 reps x 2 Comments inclined plank Standing Exercises 3 Standing Exercise Name Cable sit to stand row Side right Reps/Minutes x 15 reps 2 sets 2 Standing Exercise Name wall squats with PPT Reps/Minutes x5SH x 10reps Manual Therapy Treatment Soft Tissue Mobilization 1 Body Location SI joints, upper gluteals, paralumabrs Mobilization Type Sustained Pressure Body Position Prone Comments Pillow under stomach; to stretch hip ERotators PT-OP-R Modalities Start: 11/22/17 14:27 Freq: Status: Active Protocol: Document 12/20/17 09:50 EA (Rec: 12/20/17 10:30 EA [id number]) Electric Stimulation Electric Stimulation Interferential Current (IFC) Body Location lower paralumbars, upper gluteals bilateral Contraction Type Normal Patient Position Prone Combined With Heat/Cold Cold Pack Comments pillow under stomach PT-OP-T Assessment and Plan Start: 11/22/17 14:27 Freq: Status: Active Protocol: Document 12/20/17 10:30 EA (Rec: 12/20/17 10:31 EA [id number]) Physical Therapy Assessment Assessment Summary Assessment Patient is progressing well; recommends to see after 2 weeks Physical Therapy Plan Next Visit Focus/Plan Next Note Type Progress Note Next Visit Plan advance as tolerated
--- NOTE | 2018-01-03 10:27 | PT.OTN ---
Current Diagnoses Low back pain (01/03/18) Physical Therapy Treatment Note PT-OP-A Visit Information Start: 11/22/17 14:27 Freq: Status: Active Protocol: Document 01/03/18 09:10 EA (Rec: 01/03/18 09:42 EA [id number]) Out-Patient Physical Therapy Visit Information Visit Information Visit Type Treatment Note Visit Note Progress note perform this visit. 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 Patient denies any radiation of pain and pain increased mostly when leaning back sung in a sitting position and decreased upon leaning forward. Patient states that he and his loves to perform daily morning exercises that included whole body workout using BW and flexibility exercises; pt mentioned they also perform abdominal exercises that included leg up and raises. 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) Prior Functional Status Baseline Function- ADL's Independent Baseline Function- Work/School Able to seat and work more than 8 hours without back pain Current Functional Impairments (Reported) Functional Limitations- Work/School Unable to seat > 1 hour at work without leaning forward or change position Personal Factors Other Personal Factors That May Effect Other problem: chronic neck Therapy/Recovery pain PT-OP-C Subjective Start: 11/22/17 14:27 Freq: Status: Active Protocol: Document 01/03/18 09:10 EA (Rec: 01/03/18 09:42 EA [id number]) OP-PT Subjective Patient Comments Patient Comments Pt reports had a twisting mild injury to lower back nine days ago but improving well since. Denies BLE loss of functiona and abnormal sensory . PT-OP-J Posture/Palpation/Skin Start: 11/22/17 14:27 Freq: Status: Active Protocol: Document 11/22/17 14:29 EA (Rec: 11/23/17 14:30 EA [id number]) Posture Evaluation Position Standing L-Spine Posture Increased Lordosis Pelvis Posture Anteriorly Tilted PT-OP-K Range of Motion Start: 11/22/17 14:27 Freq: Status: Active Protocol: Document 11/22/17 14:29 EA (Rec: 11/23/17 14:30 EA [id number]) Lumbar Spine Range of Motion Lumbar Spine Active Percentage Testing Position Standing Flexion 90 Extension 90 Rotation Left 90 Rotation Right 90 Lateral Flexion Left 85 Lateral Flexion Right 85 ROM Limitations Soft Tissue Tightness Pain Hip Goniometric Range of Motion Hip Measured in Degrees Right Active Hip ROM WFL Yes Left Active Hip ROM WFL Yes PT-OP-L Special Tests Start: 11/22/17 14:27 Freq: Status: Active Protocol: Document 11/22/17 14:29 EA (Rec: 11/23/17 14:30 EA [id number]) Special Tests Lumbar Spine Special Tests Stork Test Test Results negative Valsalva Maneuver Test Results negative Straight Leg Raise Test Results Negative both Comments Tight hamstring Other Special Tests Special Tests Sacral compression: Sentive to L SI jnt Prone single Hip Ext: Sensitive to left SI jnt Thamas test: tight hip flexors PT-OP-M Strength Start: 11/22/17 14:27 Freq: Status: Active Protocol: Document 11/22/17 14:29 EA (Rec: 11/23/17 14:30 EA [id number]) Trunk Strength Trunk Manual Muscle Testing Testing Position sup/SL Flexion 4- Good- Extension 4- Good- Rotation Left 4- Good- Rotation Right 4- Good- Lateral Flexion Left 4- Good- Lateral Flexion Right 4- Good- Hip Strength Hip Manual Muscle Testing Right Flexion (L2) 5 Normal Extension (S1) 5 Normal Adduction 5 Normal External Rotation 5 Normal Internal Rotation 5 Normal Left Flexion (L2) 5 Normal Extension (S1) 5 Normal Abduction 5 Normal Adduction 5 Normal External Rotation 5 Normal Internal Rotation 5 Normal Knee Strength Knee Manual Muscle Testing Right Reason Not Measured WFL Left Reason Not Measured WFL PT-OP-Q Treatments Start: 11/22/17 14:27 Freq: Status: Active Protocol: Document 01/03/18 09:10 EA (Rec: 01/03/18 09:42 EA [id number]) Therapeutic Exercises Supine Exercises 4 Supine Exercise Name Hamstring stretch Side bilateral Reps/Minutes x 15SH x 2reps 3 Supine Exercise Name SKTC to DKTC Reps/Minutes X15 SH x 3 reps 1 Supine Exercise Name Trunk rotation Reps/Minutes x 10 reps x 2 sets each side Prone Exercises 1 Prone Exercise Name LE hip extnsion/ moutain climber Equipment Used bench Reps/Minutes x 10-12 reps x 2 Comments inclined plank Sidelying Exercises 1 Sidelying Exercise Name Clamshell Reps/Minutes x 15 reps x 2 sets Manual Therapy Treatment Soft Tissue Mobilization 1 Body Location SI joints, upper gluteals, paralumabrs Mobilization Type Sustained Pressure Body Position Prone Comments Pillow under stomach; to stretch hip ERotators PT-OP-R Modalities Start: 11/22/17 14:27 Freq: Status: Active Protocol: Document 01/03/18 09:10 EA (Rec: 01/03/18 09:42 EA [id number]) Electric Stimulation Electric Stimulation Interferential Current (IFC) Body Location lower paralumbars, upper gluteals bilateral Contraction Type Normal Patient Position Prone Combined With Heat/Cold Cold Pack Comments pillow under stomach Hot Pack/Cold Pack Treatment Cold Pack Location Paralumbars Patient Position Prone Patient Tolerance Good PT-OP-T Assessment and Plan Start: 11/22/17 14:27 Freq: Status: Active Protocol: Document 01/03/18 09:10 EA (Rec: 01/03/18 09:42 EA [id number]) Physical Therapy Assessment Goals Three Impairment Subjective complaint PS of 4/ 10 [facility] Goal (LTG) Patient will have pain complaint of 1 or 0/10 pain PS LTG Duration 4 wks Two Impairment Sitting tolerance of <5 min in upright or slight recline 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 LTG Duration 4 wks One Impairment Low back Oswestry score of 9/50 [facility] Goal (LTG) Patient will have Oswetry score of 0/50 LTG Duration 4 wks Progress Towards Goals Progress Towards Goals Progressing Toward Goals Assessment Summary Assessment Patient demonstrates muscle guarding but was able to improve after therapeutic exercises. No severe injury noted. Cont with current plan. Progress as tolerated. Physical Therapy Plan Next Visit Focus/Plan Next Visit Plan Tretment note
--- NOTE | 2018-01-05 13:03 | PT.OTN ---
Current Diagnoses Low back pain (01/05/18) Physical Therapy Treatment Note PT-OP-A Visit Information Start: 11/22/17 14:27 Freq: Status: Active Protocol: Document 01/05/18 09:53 EA (Rec: 01/05/18 10:32 EA [id number]) Out-Patient Physical Therapy Visit Information Visit Information Visit Type Treatment Note Visit Number 11 PT-OP-B Current Condition Start: 11/22/17 14:27 Freq: Status: Active Protocol: Document 11/22/17 14:29 EA (Rec: 11/23/17 14:30 EA [id number]) Current Condition History of Current Condition Onset Date 6-8 months ago Current Complaints Localized low back pain rated 5/10 History of Current Condition Pt reports present condition started 6-8 months ago that develops gradually with no known or recent injury; states it could be related to his fall in the horse when he was 10 year old. Patient denies any radiation of pain and pain increased mostly when leaning back sung in a sitting position and decreased upon leaning forward. Patient states that he and his loves to perform daily morning exercises that included whole body workout using BW and flexibility exercises; pt mentioned they also perform abdominal exercises that included leg up and raises. 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) Prior Functional Status Baseline Function- ADL's Independent Baseline Function- Work/School Able to seat and work more than 8 hours without back pain Current Functional Impairments (Reported) Functional Limitations- Work/School Unable to seat > 1 hour at work without leaning forward or change position Personal Factors Other Personal Factors That May Effect Other problem: chronic neck Therapy/Recovery pain PT-OP-C Subjective Start: 11/22/17 14:27 Freq: Status: Active Protocol: Document 01/05/18 09:53 EA (Rec: 01/05/18 10:32 EA [id number]) OP-PT Subjective Patient Comments Patient Comments Pt reports 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 PT-OP-J Posture/Palpation/Skin Start: 11/22/17 14:27 Freq: Status: Active Protocol: Document 11/22/17 14:29 EA (Rec: 11/23/17 14:30 EA [id number]) Posture Evaluation Position Standing L-Spine Posture Increased Lordosis Pelvis Posture Anteriorly Tilted PT-OP-K Range of Motion Start: 11/22/17 14:27 Freq: Status: Active Protocol: Document 11/22/17 14:29 EA (Rec: 11/23/17 14:30 EA [id number]) Lumbar Spine Range of Motion Lumbar Spine Active Percentage Testing Position Standing Flexion 90 Extension 90 Rotation Left 90 Rotation Right 90 Lateral Flexion Left 85 Lateral Flexion Right 85 ROM Limitations Soft Tissue Tightness Pain Hip Goniometric Range of Motion Hip Measured in Degrees Right Active Hip ROM WFL Yes Left Active Hip ROM WFL Yes PT-OP-L Special Tests Start: 11/22/17 14:27 Freq: Status: Active Protocol: Document 11/22/17 14:29 EA (Rec: 11/23/17 14:30 EA [id number]) Special Tests Lumbar Spine Special Tests Stork Test Test Results negative Valsalva Maneuver Test Results negative Straight Leg Raise Test Results Negative both Comments Tight hamstring Other Special Tests Special Tests Sacral compression: Sentive to L SI jnt Prone single Hip Ext: Sensitive to left SI jnt Thamas test: tight hip flexors PT-OP-M Strength Start: 11/22/17 14:27 Freq: Status: Active Protocol: Document 11/22/17 14:29 EA (Rec: 11/23/17 14:30 EA [id number]) Trunk Strength Trunk Manual Muscle Testing Testing Position sup/SL Flexion 4- Good- Extension 4- Good- Rotation Left 4- Good- Rotation Right 4- Good- Lateral Flexion Left 4- Good- Lateral Flexion Right 4- Good- Hip Strength Hip Manual Muscle Testing Right Flexion (L2) 5 Normal Extension (S1) 5 Normal Adduction 5 Normal External Rotation 5 Normal Internal Rotation 5 Normal Left Flexion (L2) 5 Normal Extension (S1) 5 Normal Abduction 5 Normal Adduction 5 Normal External Rotation 5 Normal Internal Rotation 5 Normal Knee Strength Knee Manual Muscle Testing Right Reason Not Measured WFL Left Reason Not Measured WFL PT-OP-Q Treatments Start: 11/22/17 14:27 Freq: Status: Active Protocol: Document 01/05/18 09:53 EA (Rec: 01/05/18 10:32 EA [id number]) Cardio Equipment Recumbent Bicycle Duration (Minutes) 6 Resistance 4 Therapeutic Exercises Supine Exercises 4 Supine Exercise Name Hamstring stretch Side bilateral Reps/Minutes x 15SH x 2reps 3 Supine Exercise Name SKTC to DKTC Reps/Minutes X15 SH x 3 reps 2 Supine Exercise Name Abd bracing with alt marching Reps/Minutes x 5 reps x 3 sets Comments long lever with marching 1 Supine Exercise Name Trunk rotation Reps/Minutes x 10 reps x 2 sets each side Manual Therapy Treatment Soft Tissue Mobilization 1 Body Location SI joints, upper gluteals, paralumabrs Mobilization Type Sustained Pressure Body Position Prone Comments Pillow under stomach; to stretch hip ERotators PT-OP-R Modalities Start: 11/22/17 14:27 Freq: Status: Active Protocol: Document 01/05/18 09:53 EA (Rec: 01/05/18 10:32 EA [id number]) Electric Stimulation Electric Stimulation Interferential Current (IFC) Body Location lower paralumbars, upper gluteals bilateral Contraction Type Normal Patient Position Prone Combined With Heat/Cold Cold Pack Comments pillow under stomach PT-OP-T Assessment and Plan Start: 11/22/17 14:27 Freq: Status: Active Protocol: Document 01/05/18 09:53 EA (Rec: 01/05/18 10:32 EA [id number]) Physical Therapy Assessment Assessment Summary Assessment Pt tolerated treatment with slight discomfort during paralumbar stretch. Patient is progressing well. Physical Therapy Plan Next Visit Focus/Plan Next Note Type Treatment Note Next Visit Plan Standing/functional exercises as able
--- NOTE | 2018-01-11 13:43 | PT.OTRE ---
Current Diagnoses Low back pain (01/10/18) Provider Visit Care Team Role Provider Type Franki Raza PA-C Attending Provider Advanced Records Assistant Primary Care Provider Specialty: Family Practice Address: [address] [place] [address], [facility] Email: Physical Therapy Re-Evaluation PT-OP-A Visit Information Start: 11/22/17 14:27 Freq: Status: Active Protocol: Document 01/10/18 10:24 EA (Rec: 01/10/18 10:32 EA [id number]) Out-Patient Physical Therapy Visit Information Visit Information Visit Type Treatment Note Visit Note Re-eval perform this visit. Visit Start Time 09:45 Visit Stop Time 10:30 Total Visit Minutes 45 Visit Number 12 Number of SPINDLE MAKER Visits 0 PT-OP-B Current Condition Start: 11/22/17 14:27 Freq: Status: Active Protocol: Document 01/10/18 11:15 EA (Rec: 01/10/18 11:17 EA [id number]) Current Condition History of Current Condition Onset Date 6-8 months ago Current Complaints Localized low back pain rated 5/10 History of Current Condition Pt reports present condition started 6-8 months ago that develops gradually with no known or recent injury; states it could be related to his fall in the horse when he was 10 year old. Patient denies any radiation of pain and pain increased mostly when leaning back sung in a sitting position and decreased upon leaning forward. Patient states that he and his loves to perform daily morning exercises that included whole body workout using BW and flexibility exercises; pt mentioned they also perform abdominal exercises that included leg up and raises. 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) Prior Functional Status Baseline Function- ADL's Independent Baseline Function- Work/School Able to seat and work more than 8 hours without back pain Current Functional Impairments (Reported) Functional Limitations- Work/School Unable to seat > 1 hour at work without leaning forward or change position Personal Factors Other Personal Factors That May Effect Other problem: chronic neck Therapy/Recovery pain PT-OP-C Subjective Start: 11/22/17 14:27 Freq: Status: Active Protocol: Document 01/10/18 10:24 EA (Rec: 01/10/18 10:32 EA [id number]) OP-PT Subjective Patient Comments Patient Comments Pt reports that his low back is much feeling better now and was able to perform fitness exercises with at home Patient Questionnaires Oswestry Low Back Index Oswestry Impairment 1 to 19% Impaired (Score 1-19) PT-OP-J Posture/Palpation/Skin Start: 11/22/17 14:27 Freq: Status: Active Protocol: Document 01/10/18 11:15 EA (Rec: 01/10/18 11:17 EA [id number]) Posture Evaluation Position Standing L-Spine Posture Increased Lordosis Pelvis Posture Neutral Palpation Assessment Location One Palpation Location Paralumbars, SI joint Palpation Findings Soft Tissue Tightness Tenderness PT-OP-K Range of Motion Start: 11/22/17 14:27 Freq: Status: Active Protocol: Document 01/10/18 11:15 EA (Rec: 01/10/18 11:17 EA [id number]) Lumbar Spine Range of Motion Lumbar Spine Active Percentage Testing Position Standing Flexion 90 Extension 90 Rotation Left 90 Rotation Right 90 Lateral Flexion Left 90 Lateral Flexion Right 90 ROM Limitations Soft Tissue Tightness Pain PT-OP-L Special Tests Start: 11/22/17 14:27 Freq: Status: Active Protocol: Document 11/22/17 14:29 EA (Rec: 11/23/17 14:30 EA [id number]) Special Tests Lumbar Spine Special Tests Stork Test Test Results negative Valsalva Maneuver Test Results negative Straight Leg Raise Test Results Negative both Comments Tight hamstring Other Special Tests Special Tests Sacral compression: Sentive to L SI jnt Prone single Hip Ext: Sensitive to left SI jnt Thamas test: tight hip flexors PT-OP-M Strength Start: 11/22/17 14:27 Freq: Status: Active Protocol: Document 01/10/18 11:15 EA (Rec: 01/10/18 11:17 EA [id number]) Hip Strength Hip Manual Muscle Testing Right Flexion (L2) 5 Normal Extension (S1) 5 Normal Abduction 5 Normal Adduction 5 Normal External Rotation 5 Normal Internal Rotation 5 Normal Left Flexion (L2) 5 Normal Extension (S1) 5 Normal Abduction 5 Normal Adduction 5 Normal External Rotation 5 Normal Internal Rotation 5 Normal PT-OP-Q Treatments Start: 11/22/17 14:27 Freq: Status: Active Protocol: Document 01/10/18 10:24 EA (Rec: 01/10/18 10:32 EA [id number]) Cardio Equipment Recumbent Bicycle Duration (Minutes) 7 Resistance 4 Therapeutic Exercises Supine Exercises 2 Supine Exercise Name Abd bracing with alt marching Reps/Minutes x 5 reps x 3 sets Comments long lever with marching 1 Supine Exercise Name Trunk rotation Reps/Minutes x 10 reps x 2 sets each side Prone Exercises 2 Prone Exercise Name Plank- mountain climber Reps/Minutes x20 reps x 2 1 Prone Exercise Name LE hip extnsion/ moutain climber Sidelying Exercises 1 Sidelying Exercise Name Clamshell Reps/Minutes x 15 reps x 2 sets Standing Exercises 3 Standing Exercise Name Cable sit to stand row 2 Standing Exercise Name wall squats with PPT Reps/Minutes x5SH x 10reps 1 Standing Exercise Name Floor to waist lift: body mechanics Resistance 20-30 lbs Reps/Minutes x 10 x 2 Manual Therapy Treatment Soft Tissue Mobilization 1 Body Location SI joints, upper gluteals, paralumabrs Mobilization Type Sustained Pressure Body Position Prone Comments Pillow under stomach; to stretch hip ERotators PT-OP-R Modalities Start: 11/22/17 14:27 Freq: Status: Active Protocol: Document 01/10/18 10:24 EA (Rec: 01/10/18 10:32 EA [id number]) Electric Stimulation Electric Stimulation Interferential Current (IFC) Body Location lower paralumbars, upper gluteals bilateral Contraction Type Normal Patient Position Prone Combined With Heat/Cold Cold Pack Comments pillow under stomach Hot Pack/Cold Pack Treatment Cold Pack Location Paralumbars Patient Position Prone Patient Tolerance Good PT-OP-T Assessment and Plan Start: 11/22/17 14:27 Freq: Status: Active Protocol: Document 01/10/18 10:24 EA (Rec: 01/10/18 10:32 EA [id number]) Physical Therapy Assessment Impairments Impairments Pain Posture Strength Goals Three Impairment Subjective complaint PS of 4/ 10 Retail 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 LTG Duration Goal reached One Impairment Low back Oswestry sore of 9/50 [employer] Tra[employer] Goal (LTG) Patient will have Oswestry score of 0/50 LTG Duration 4 wks Progress Towards Goals Progress Towards Goals Progressing Toward Goals Assessment Summary Assessment Patient tolerated functional exercises with no discomfort noted. Overall patient is progressing well and will cont . to benefit with skilled PT. Advance as tolerated Physical Therapy Plan Frequency and Duration Frequency of Treatment 2x/Week Plan of Care Start Date 01/10/18 Plan of Care End Date 02/14/18 Therapeutic Interventions Therapeutic Interventions Home Exercise Program Joint Mobilizations Manual Therapy Self-Care/Home Management Soft Tissue Mobilization Therapeutic Activities Therapeutic Exercises Modalities Cold Pack/Ice Massage Electric Stimulation Ultrasound Next Visit Focus/Plan Next Visit Plan Advance as tolerated with functional exercises.
--- NOTE | 2018-01-11 13:43 | PT.OPPOC ---
Current Diagnoses Low back pain (01/10/18) Provider Visit Care Team Role Provider Type Franki Raza PA-C Attending Provider Advanced Assistant Shift Supervisor Primary Care Provider Specialty: Family Practice Address: [address] [place] [address], [id number] Email: Plan Of Care PT-OP-T Assessment and Plan Start: 11/22/17 14:27 Freq: Status: Active Protocol: Document 01/10/18 10:24 EA (Rec: 01/10/18 10:32 EA [id number]) Physical Therapy Assessment Impairments Impairments Pain Posture Strength Goals Three Impairment Subjective complaint PS of 4/ 10 Nursing Home Goal (LTG) Patient will have pain complaint of 1 or 0/10 pain PS LTG Duration 4 wks Two Impairment Sitting tolerance of <5 min in upright or slight recline back Nursing Home Goal (LTG) Patient will exhibit >30 minutes of sitting tolerance in an upright or slight recline back. LTG Duration Goal reached One Impairment Low back Oswestry sore of 9/50 Nursing Home Goal (LTG) Patient will have Oswestry score of 0/50 LTG Duration 4 wks Progress Towards Goals Progress Towards Goals Progressing Toward Goals Assessment Summary Assessment Patient tolerated functional exercises with no discomfort noted. Overall patient is progressing well and will cont . to benefit with skilled PT. Advance as tolerated Physical Therapy Plan Frequency and Duration Frequency of Treatment 2x/Week Plan of Care Start Date 01/10/18 Plan of Care End Date 02/14/18 Therapeutic Interventions Therapeutic Interventions Home Exercise Program Joint Mobilizations Manual Therapy Self-Care/Home Management Soft Tissue Mobilization Therapeutic Activities Therapeutic Exercises Modalities Cold Pack/Ice Massage Electric Stimulation Ultrasound Next Visit Focus/Plan Next Visit Plan Advance as tolerated with functional exercises. Plan of Care Dates Plan of Care Start Date 01/10/18 Plan of Care End Date 02/14/18 Please Sign and Return: I have reviewed this Plan of Care and certify that the skilled therapy services above are required to meet the patient?s needs. Physician Signature Date Printed Name and Credentials Clinical Instructor Signature Printed Name and Credentials
== END 2018-05-08 16:08 ==
LOC: PHYS 09:45
PROVIDERS: PCP Physician Assistant; Visit Provider Physician Assistant
DX: M54.5 Low back pain (principal)
CPT/HCPCS: 97010; 97014; 97110; 97140; 97161; 97530; 97535; G0283